=== PATIENT | female | born 1975 | race Caucasian/White ===

== ENCOUNTER → 2016-05-22 | Outpatient (CLI) | payer BC | LOC: RAD 12:47 | PROVIDERS: ATTEND Family Medicine | DX: R59.0 Localized enlarged lymph nodes (principal); E01.0 Iodine-deficiency related diffuse (endemic) goiter | CPT/HCPCS: 76536 ==

== ENCOUNTER → 2016-05-28 | Outpatient (CLI) | payer BC | LOC: RAD 12:44 | PROVIDERS: ATTEND Family Medicine | DX: R93.8 Abnormal findings on diagnostic imaging of other specified body structures (principal) | CPT/HCPCS: 70491; Q9967 ==

== ENCOUNTER → 2016-06-03 | Outpatient (CLI) | payer BC | LOC: RAD 13:45 | PROVIDERS: ATTEND Family Medicine | DX: R22.2 Localized swelling, mass and lump, trunk (principal) | CPT/HCPCS: 71260; Q9967 ==

== ENCOUNTER 2016-07-25 02:29 | Emergency (ER) | payer BC ==
[~2016-07-25] VITALS: Ht 172.7 cm; Wt 65.7 kg
[~2016-07-25 02:29] MED LIST: ALBU8.5H4 IH; AZTH250C PO; ESCI10TA PO; EST5V5 IM; HYDR-3754 PO; MINO100C2 PO; NF-TORA10 PO; ONDAN4ODT PO; OXYC1TAB87 PO; PARO7.5C PO; PRED50TA PO; PRM25T PO; [UNRECOGNIZED DRUG - CODE] IM
--- NOTE | 2016-07-25 02:32 | NUR ---
Pt presents ambulatory to ER with c/o abdominal pain in RLQ radiates to midline, describes as "burning", rates as 4/10. Onset Thday night. Also has diarrhea, last episode just before coming to ER.
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
[2016-07-25] MEDS ORDERED: EST45C (02:53)
[2016-07-25] MEDS ORDERED: EST1.25T PO (02:53)
[2016-07-25] MEDS ORDERED: SODIUM CHLORIDE FLUSH 3 ML SYR IV PRN (02:55)
[2016-07-25] MEDS ORDERED: KETOROLAC 30 MG/ML (TORADOL) 1 ML VIAL IV ONE (02:55)
[2016-07-25] MEDS ORDERED: ONDANSETRON 2 MG/ML (Z0FRAN) 2 ML VIAL IV ONE (02:55)
[2016-07-25] MEDS ORDERED: SODIUM CHLORIDE FLUSH 10 ML SYR IV PRN (02:55)
[2016-07-25 03:25] LABS: MEAN CORPUSCULAR HEMOGLOBIN 29.3 PG (26.0-34.0); MEAN CORPUSCULAR HGB CONC 33.7 g/dL (31.0-37.0); MEAN CORPUSCULAR VOLUME 87 FL (80-100)
[2016-07-25 03:26] LABS: BASOPHILS % (AUTO) 0 % (0-2); EOSINOPHILS % (AUTO) 2 % (0-4); LYMPHOCYTES # (AUTO) 1.7 X10^3; MEAN PLATELET VOLUME 11.1 FL (6.0-9.5); MONOCYTES # (AUTO) 0.8 X10^3; MONOCYTES % (AUTO) 5 % (3-11); NEUTROPHILS # (AUTO) 12.6 X10^3; NEUTROPHILS % (AUTO) 81 % (51-67); PLATELET COUNT 240 10^3uL (150-450)
[2016-07-25 03:27] LABS: EOSINOPHILS # (AUTO) 0.4 10^3uL
[2016-07-25 03:36] LABS: ANION GAP 11.9 MEQ/L (3-15)
[2016-07-25 03:38] LABS: ALBUMIN 4.1 g/dL (3.4-5.0); CALCULATED IONIZED CALCIUM 3.9 mg/dL (3.8-4.6); TOTAL PROTEIN 7.4 g/dL (6.4-8.5)
[2016-07-25 03:40] LABS: BILIRUBIN,URINE Negative (Negative); CLARITY,URINE Clear; COLOR,URINE Yellow; GLUCOSE, URINE (UA) Negative (Negative); LEUKOCYTE ESTERASE ,URINE Negative (Negative); UROBILINOGEN,URINE 0.2 mg/dL (0.2-1.0)
--- NOTE | 2016-07-25 03:40 | NUR ---
Pt appears to be sleeping. Eyes closed, respirations even et unlabored. No facial grimacing or guarding of abdomen. Appears comfortable. Still awaiting lab results.
[2016-07-25] MEDS: HYDROmorphone 1 MG/ML (DILAUDID) SYRINGE IV ONE ×2 (03:55→04:23)
--- NOTE | 2016-07-25 04:06 | NUR ---
One time dose of Dilaudid ordered for discomfort. Pt rates pain at 3/10. Dose is held at this time due to pt not having anyone who can drive her home upon dismissal. Pt is attempting to get a hold of someone to take her home. Will administer medication when pt has ride.
--- NOTE | 2016-07-25 04:25 | NUR ---
Offered Dilaudid for pain. Explained that she will need to stay for a few hours if unable to have a ride home. Pt declined taking the Dilaudid at this time until she knows she has a ride home.
--- NOTE | 2016-07-25 05:00 | NUR ---
Pt resting on cart. IVF infusing. Denies needs. Still has not reached anyone for a ride home. States she is doing fine. Declines warm blanket. Call light in reach.
[2016-07-25] MEDS ORDERED: ONDAN4ODT PO (05:29)
[2016-07-25] MEDS ORDERED: TRM50T PO (05:29)
--- NOTE | 2016-07-25 05:43 | NUR ---
Pt dismissed to home with instructions and prescriptions. Pt stated her understanding. Pt left ambulatory to POV. Rates pain 3/10. Says she feels a little better than when she came in. IV site discontinued. No other needs or questions.
[2016-07-25 05:45] VITALS: BP 103/62
--- NOTE | 2016-07-25 08:29 | Diagnostic Imaging Report ---
PROCEDURE: CT abdomen and pelvis with and without contrast. TECHNIQUE: Precontrast acquisitions were acquired through the abdomen and pelvis. Multiple contiguous axial images were obtained through the abdomen and pelvis after the administration of intravenous contrast. INDICATION: Right lower quadrant pain rule out appendicitis versus urolithiasis, flank pain. CT abdomen pelvis with and without contrast 07/25/2016. No priors available for comparison. FINDINGS: There are patchy airspace opacities in medial aspect of the right middle lobe at the lung bases likely areas of atelectasis. There is a nonobstructive stone in the right kidney. No obstructive stone seen on either side with no hydronephrosis. The kidneys are otherwise unremarkable. Within the liver tiny hypodensity less than a centimeter in size adjacent to the gallbladder, too small to characterize perhaps a small cyst. A similar vague hypodensity in the tip of the right lobe is noted and too small for catheterization. The remaining liver is unremarkable other than mild prominence. The spleen is unremarkable. The adrenal glands and pancreas appear normal. Gallbladder contracted. No ascites lymphadenopathy or free are seen in the abdomen nor pelvis. The urinary bladder wall is thickened. No acute osseous abnormality is appreciated. Appendix is unremarkable. IMPRESSION: 1. Incidental findings as described above including multiple tiny hypodensities in the liver which are too small to characterize at this time and could be followed as clinically warranted. 2. Tiny nonobstructive stone in the right kidney with no obstructive process or hydronephrosis on either side. 3. Other incidental findings as discussed above. Findings agree with the preliminary report. Dictated by: Dictated on workstation # [id number]
== END 2016-07-25 05:43 | disposition home or self-care (01) ==
LOC: EDUNIT# 02:29 → ED 02:30
DX: R10.31 Right lower quadrant pain (principal); F17.210 Nicotine dependence, cigarettes, uncomplicated
CPT/HCPCS: 36415; 74178; 80053; 81003; 82150; 83690; 85025; 86140; 96361; 96374; 96375; 99284; J1885; J2405; J7030; Q9967; 99283